=== PATIENT | female | born 1970 | race Caucasian/White ===

== ENCOUNTER 2019-01-03 23:55 | Emergency (ER) | payer SELFPAY ==
[2019-01-04] MEDS ORDERED: AMOXICILLIN/POT 875/125 1 EACH PO ONE (00:02)
[2019-01-04] MEDS ORDERED: DIPH,PERTUSS(ACELL),TET VAC/PF 0.5 ML DISP.SYRIN IM ONE (00:02)
--- NOTE | 2019-01-04 00:03 | ED Physician Documentation ---
General Adult - HISTORIAN Historian: patient - HPI Chief Complaint: General Adult Further Comments: yes (48 year old female patient presents with complaint of mouse bite to right 4th finger. Mouse was on sticky pad, patient was trying to get out of house. Last tetanus was 1 year ago.) - ROS CONST: no problems EYES/ENT: none CVS/RESP: none GI/: none MS/SKIN/LYMPH: none NEURO/PSYCH: denies: headache - PAST HX Past History: other (bipolar; anxiety) - SOCIAL HX Smoking History: non-smoker - FAMILY HX Family History: No - REVIEWED ASSESSMENTS Nursing Assessment Reviewed: Yes Vitals Reviewed: Yes Progress - Progress Progress: Wound cleaned by nursing, dressing applied. ED Results Lab/Radiology - Orders Orders: ED Orders Category Date Time Status Cleanse with NS and Chlorhexid 1T Care 01/04/19 00:02 Ordered Amoxicillin/Potassium Clav [AUGMENTIN 875MG/125 mg Med 01/04/19 00:02 Once Tablet] 1 each PO NOW ONE Diph,Pertuss(Acell),Tet Vac/Pf [Adacel] Med 01/04/19 00:02 Once 0.5 ml IM .ONCE ONE General Adult Physical Exam - PHYSICAL EXAM GENERAL APPEARANCE: anxious EENT: eye inspection normal, JESSICA RESPIRATORY: no resp distress, chest non-tender, breath sounds normal CVS: reg rate & rhythm, heart sounds normal, equal pulses, no murmur, no gallop, PMI nml, no JVD, no friction rub, 24 ABDOMEN: soft, no organomegaly, normal bowel sounds, no abdominal bruit, no distension SKIN: warm/dry, normal color, other (superficial 2 mm abrasion noted on dorsal aspect of right 4th digit. No ecchymosis, no erythema, no drainage. 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 Apply bandage. 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 Condition: Stable Disposition: 01 HOME, SELF-CARE Decision to Admit: NO Decision Time: 00:15
[2019-01-04] MEDS ORDERED: NEOMYCIN/BACITRACIN/POLYMYXINB OINT 15 GM TP ONE (00:11)
[2019-01-04 01:24] VITALS: BP 165/99
== END 2019-01-04 00:15 | disposition home or self-care (01) ==
LOC: ED 23:55
DX: S61.257A Open bite of left little finger without damage to nail, initial encounter (principal); W53.01XA Bitten by mouse, initial encounter
CPT/HCPCS: 99282; 99283